=== PATIENT | male | born 1960 | race Caucasian/White ===

== ENCOUNTER 2019-07-16 01:11 | Observation (INO) ==
[2019-07-16] MEDS ORDERED: Ipratropium/Albuterol Neb 3 ML IH ONE (01:23)
[2019-07-16] MEDS ORDERED: methylPREDNISolone 125 MG/2 ML VIAL IVP ONE (01:23)
[2019-07-16 01:59] LABS: Basophils % 0.7 %; Eosinophils # 0.3 K/mcL (0.0-0.6); Eosinophils % 5.8 %; Hematocrit 41.4 % (37.5-50.1); Hemoglobin 14.6 g/dL (12.9-16.9); Immature Granulocytes % 0.5 % (0-4); Lymphocytes % 35.1 %; Mean Corpuscular HGB Conc 35.3 g/dL (31.6-35.5); Mean Corpuscular Hemoglobin 29.7 pg (28.0-33.3); Mean Corpuscular Volume 84.1 fL (83.0-100.0); Mean Platelet Volume 9.2 fL (9.4-12.4); Monocytes # 0.6 K/mcL (0.0-1.3); Monocytes % 10.8 %; Neutrophils # 2.7 K/mcL (1.6-8.9); Platelet Count 216 K/mcL (140-400); Red Blood Count 4.92 M/mcL (4.19-5.50); Red Cell Distribution Width 13.9 % (11.5-14.5); Segmented Neutrophils % 47.1 %; White Blood Count 5.7 K/mcL (4.3-11.1)
[2019-07-16 02:18] LABS: BUN/Creatinine Ratio 14 (6-26); Blood Urea Nitrogen 15 mg/dL (8-23); Calcium 9.2 mg/dL (8.6-10.3); Carbon Dioxide 24 mEq/L (23-29); Chloride 101 mEq/L (98-107); Glucose 106 mg/dL (70-105); Osmolality,Calculated 283 (280-300); Potassium 4.2 mEq/L (3.5-5.1); Sodium 136 mEq/L (136-145); eGFR For African Americans > 60 (> 60); eGFR For Non-African Americans > 60 (> 60)
[2019-07-16 02:19] LABS: Troponin I < 0.03 ng/mL (< 0.04)
[2019-07-16] MEDS ORDERED: Albuterol 2.5 MG/3 ML NEBULIZER IH ONE (02:55)
[2019-07-16] MEDS ORDERED: Azithromycin 500 MG in 0.9 % Sodium Chloride 250 ML IVPB ONE (03:00)
[2019-07-16 04:23] LABS: ABG Base Excess 2 mEq/L (-2 to 3); ABG HCO3 25 mEq/L (21-27); ABG Oxygen Saturation 93 % (95-98); ABG PCO2 33 mmHg (35-45); ABG PH 7.48 pH Units (7.32-7.45); ABG PO2 62 mmHg (85-104); ABG TCO2 26 mEq/L (20-26)
[2019-07-16] MEDS ORDERED: Acetaminophen 325 MG TABLET PO PRN (05:22)
[2019-07-16] MEDS ORDERED: *HR* Promethazine 25 MG/ML VIAL IVP PRN (05:22)
[2019-07-16] MEDS ORDERED: Mag Hydrox/Al Hydrox/Simeth 30 ML UDC PO PRN (05:22)
[2019-07-16] MEDS ORDERED: Naloxone 0.4 MG/ML INJ IVP PRN (05:22)
[2019-07-16] MEDS ORDERED: Nicotine 14 MG PATCH.TD24 TD PRN (05:25)
[2019-07-16] MEDS ORDERED: Benzonatate 100 MG CAPSULE PO PRN (05:26)
[2019-07-16] MEDS: Ipratropium/Albuterol Neb 3 ML IH SCH ×4 (07:30→19:51)
[2019-07-16] MEDS: MethylPREDNISolone 40 MG/ML VIAL IVP SCH ×2 (08:34→17:54)
[2019-07-16] MEDS: *HR* Heparin 5,000 UNIT/ML VIAL SQ SCH ×2 (08:34→17:54)
[2019-07-16] MEDS: FLUoxetine 20 MG CAPSULE PO SCH (08:34)
[2019-07-16] MEDS ORDERED: Divalproex (24 HR) 500 MG TABLET PO SCH (09:00)
[2019-07-16] MEDS ORDERED: Doxycycline 100 MG CAPSULE PO SCH (09:00)
[2019-07-17] MEDS: traZODone 50 MG TABLET PO SCH ×2 (00:31→21:27)
[2019-07-17] MEDS: Ipratropium/Albuterol Neb 3 ML IH SCH ×7 (03:23→23:47)
[2019-07-17 05:14] LABS: Basophils % 0.1 %; Hematocrit 39.9 % (37.5-50.1); Hemoglobin 13.7 g/dL (12.9-16.9); Immature Granulocytes % 0.5 % (0-4); Lymphocytes # 0.7 K/mcL (0.6-4.6); Lymphocytes % 5.7 %; Mean Corpuscular HGB Conc 34.3 g/dL (31.6-35.5); Mean Corpuscular Hemoglobin 29.5 pg (28.0-33.3); Mean Platelet Volume 9.7 fL (9.4-12.4); Monocytes # 0.9 K/mcL (0.0-1.3); Monocytes % 7.3 %; Neutrophils # 10.5 K/mcL (1.6-8.9); Platelet Count 219 K/mcL (140-400); Red Blood Count 4.64 M/mcL (4.19-5.50); Red Cell Distribution Width 13.8 % (11.5-14.5); Segmented Neutrophils % 86.4 %
[2019-07-17 05:15] LABS: White Blood Count 12.2 K/mcL (4.3-11.1)
[2019-07-17 05:35] LABS: BUN/Creatinine Ratio 23 (6-26); Blood Urea Nitrogen 22 mg/dL (8-23); Calcium 9.1 mg/dL (8.6-10.3); Carbon Dioxide 22 mEq/L (23-29); Chloride 101 mEq/L (98-107); Glucose 131 mg/dL (70-105); Magnesium 2.3 mg/dL (1.6-2.6); Osmolality,Calculated 279 (280-300); Potassium 4.9 mEq/L (3.5-5.1); Sodium 132 mEq/L (136-145); eGFR For African Americans > 60 (> 60); eGFR For Non-African Americans > 60 (> 60)
[2019-07-17] MEDS: MethylPREDNISolone 40 MG/ML VIAL IVP SCH ×3 (06:08→17:22)
[2019-07-17] MEDS: *HR* Heparin 5,000 UNIT/ML VIAL SQ SCH ×2 (06:14→17:22)
[2019-07-17] MEDS: Azithromycin 500 MG in 0.9 % Sodium Chloride 250 ML IVPB SCH (06:15)
[2019-07-17] MEDS: FLUoxetine 20 MG CAPSULE PO SCH (08:25)
[2019-07-17] MEDS ORDERED: Divalproex (24 HR) 500 MG TABLET PO SCH (21:00)
[2019-07-18] MEDS: MethylPREDNISolone 40 MG/ML VIAL IVP SCH ×2 (00:50→09:31)
[2019-07-18] MEDS: Ipratropium/Albuterol Neb 3 ML IH SCH ×3 (03:34→11:07)
[2019-07-18] MEDS: Azithromycin 500 MG in 0.9 % Sodium Chloride 250 ML IVPB SCH (06:14)
[2019-07-18] MEDS: *HR* Heparin 5,000 UNIT/ML VIAL SQ SCH (06:15)
[2019-07-18 06:41] VITALS: BP 119/73
[2019-07-18] MEDS ORDERED: FLUoxetine 20 MG CAPSULE PO SCH (09:00)
== END 2019-07-18 14:06 | disposition home or self-care (01) ==
LOC: 3ANU 01:11 → EMEROOARM 01:11 → SUATTDRO 04:25 → 3ANU 04:56
PROVIDERS: ADMIT Internal Medicine; ATTEND Pharmacist

== ENCOUNTER 2020-06-15 08:01 | Inpatient (IN) ==
[2020-06-15] MEDS ORDERED: Albuterol 2.5 MG/3 ML NEBULIZER IH ONE (08:14)
[2020-06-15] MEDS ORDERED: methylPREDNISolone 125 MG/2 ML VIAL IVP ONE (08:16)
[2020-06-15 08:51] LABS: Basophils # 0.1 K/mcL (0.0-0.2); Basophils % 0.9 %; Eosinophils # 0.3 K/mcL (0.0-0.6); Eosinophils % 5.1 %; Hematocrit 43.2 % (37.5-50.1); Hemoglobin 14.4 g/dL (12.9-16.9); Immature Granulocytes % 0.4 % (0-4); Lymphocytes % 18.2 %; Mean Corpuscular HGB Conc 33.3 g/dL (31.6-35.5); Mean Corpuscular Hemoglobin 29.5 pg (28.0-33.3); Mean Corpuscular Volume 88.5 fL (83.0-100.0); Mean Platelet Volume 9.5 fL (9.4-12.4); Monocytes # 0.6 K/mcL (0.0-1.3); Monocytes % 9.7 %; Neutrophils # 3.7 K/mcL (1.6-8.9); Platelet Count 154 K/mcL (140-400); Red Blood Count 4.88 M/mcL (4.19-5.50); Red Cell Distribution Width 12.9 % (11.5-14.5); Segmented Neutrophils % 65.7 %; White Blood Count 5.7 K/mcL (4.3-11.1)
[2020-06-15 09:16] LABS: Prothrombin Time 12.1 Seconds (9.4-12.1)
[2020-06-15 09:18] LABS: Activated Partial Thrombo Time 27.3 Seconds (26.0-36.0)
[2020-06-15 09:26] LABS: Alanine Aminotransferase 23 Units/L (7-52); Albumin/Globulin Ratio 1.3 (1.1-2.2); Alkaline Phosphatase 56 Units/L (34-104); Aspartate Amino Transferase 23 Units/L (13-39); BUN/Creatinine Ratio 16 (6-26); Bilirubin,Total 0.6 mg/dL (0.3-1.0); Blood Urea Nitrogen 14 mg/dL (8-23); Calcium 8.6 mg/dL (8.6-10.3); Carbon Dioxide 24 mEq/L (23-29); Chloride 100 mEq/L (98-107); Glucose 120 mg/dL (70-105); Osmolality,Calculated 280 (280-300); Potassium 3.9 mEq/L (3.5-5.1); Sodium 134 mEq/L (136-145); Troponin I 0.13 ng/mL (< 0.04); eGFR For African Americans > 60 (> 60); eGFR For Non-African Americans > 60 (> 60)
[2020-06-15] MEDS ORDERED: Nitroglycerin 0.4 MG TAB.SUBL SL PRN (09:33)
[2020-06-15] MEDS: Aspirin 81 MG TAB.CHEW PO SCH (09:50)
[2020-06-15] MEDS ORDERED: 0.9 % Sodium Chloride 1,000 ML ONE (09:52)
[2020-06-15] MEDS ORDERED: 0.9 % Sodium Chloride 1,000 ML IV ONE (09:53)
[2020-06-15] MEDS ORDERED: Nicotine 2 MG GUM BC PRN (11:25)
[2020-06-15] MEDS ORDERED: Ipratropium/Albuterol Neb 3 ML IH PRN (11:25)
[2020-06-15] MEDS ORDERED: Mag Hydrox/Al Hydrox/Simeth 30 ML UDC PO PRN (11:28)
[2020-06-15] MEDS ORDERED: Ondansetron 4 MG/2 ML VIAL IVP PRN (11:28)
[2020-06-15] MEDS ORDERED: Acetaminophen 325 MG TABLET PO PRN (11:28)
[2020-06-15] MEDS ORDERED: MOM Conc 10 ML UD.LIQ PO PRN (11:28)
[2020-06-15] MEDS ORDERED: *HR* HYDROcodone/Acet 5/325 mg TABLET PO PRN (11:28)
[2020-06-15] MEDS ORDERED: Naloxone 0.4 MG/ML INJ IVP PRN (11:28)
[2020-06-15] MEDS ORDERED: *HR* Heparin 5,000 UNIT/ML VIAL IVP PRN ×2 (11:32)
[2020-06-15] MEDS ORDERED: *HR* Heparin 5,000 UNIT/ML VIAL IVP ONE (11:32)
[2020-06-15] MEDS ORDERED: Heparin 25,000UNIT/250ML 1/2NS 25,000 UNIT/250 ML IV.SOLN IVC SCH (11:45)
[2020-06-15] MEDS: Ipratropium/Albuterol Neb 3 ML IH SCH ×4 (12:13→23:30)
[2020-06-15 12:25] LABS: Hematocrit 43.6 % (37.5-50.1); Hemoglobin 14.3 g/dL (12.9-16.9); Mean Corpuscular HGB Conc 32.8 g/dL (31.6-35.5); Mean Corpuscular Hemoglobin 29.1 pg (28.0-33.3); Mean Corpuscular Volume 88.6 fL (83.0-100.0); Mean Platelet Volume 9.4 fL (9.4-12.4); Platelet Count 164 K/mcL (140-400); Red Blood Count 4.92 M/mcL (4.19-5.50); Red Cell Distribution Width 12.8 % (11.5-14.5)
[2020-06-15 12:30] LABS: Heparin anti-factor XA UFH < 0.04 IU/mL (0.30-0.70)
[2020-06-15] MEDS: Azithromycin 500 MG in 0.9 % Sodium Chloride 250 ML IVPB SCH (12:52)
[2020-06-15] MEDS ORDERED: Perflutren Lipid Microsphere 1.3 ML in 0.9 % Sodium Chloride 8.7 ML IVP PRN (14:28)
[2020-06-15] MEDS ORDERED: ISOVUE-370 200 ML INFUS..BTL ONE (14:54)
[2020-06-15] MEDS ORDERED: 0.9 % Sodium Chloride 2,000 ML ONE (14:54)
[2020-06-15] MEDS ORDERED: Heparin 1,000 UNITS/500 mL 500 ML ONE (14:54)
[2020-06-15] MEDS ORDERED: Nitroglycerin 1,000 MCG/10 ML VIAL IV ONE (14:54)
[2020-06-15] MEDS ORDERED: *HR* Heparin 10,000 UNIT/10 ML VIAL ONE (14:54)
[2020-06-15] MEDS: MethylPREDNISolone 40 MG/ML VIAL IVP SCH ×2 (15:04→23:40)
[2020-06-15] MEDS ORDERED: *HR* FentaNYL (PF) 100 MCG/2 ML VIAL ONE (15:09)
[2020-06-15] MEDS ORDERED: *HR* Midazolam HCl 2 MG/2 ML VIAL ONE (15:09)
[2020-06-15] MEDS ORDERED: *HR* Atropine Sulfate 1 MG/10 ML SYRINGE ONE (15:45)
[2020-06-15] MEDS: Divalproex (24 HR) 500 MG TABLET PO SCH (20:44)
[2020-06-15] MEDS ORDERED: traZODone 50 MG TABLET PO PRN (21:00)
[2020-06-15] MEDS: Budesonide/Formoterol 160/4.5 1 PUFF INH IH SCH (21:36)
[2020-06-16] MEDS: Ipratropium/Albuterol Neb 3 ML IH SCH ×6 (03:43→23:33)
[2020-06-16] MEDS: Budesonide/Formoterol 160/4.5 1 PUFF INH IH SCH ×2 (07:20→20:02)
[2020-06-16 07:30] LABS: Basophils % 0.1 %; Hematocrit 41.3 % (37.5-50.1); Hemoglobin 13.8 g/dL (12.9-16.9); Immature Granulocytes % 0.5 % (0-4); Lymphocytes # 0.6 K/mcL (0.6-4.6); Lymphocytes % 5.5 %; Mean Corpuscular HGB Conc 33.4 g/dL (31.6-35.5); Mean Corpuscular Hemoglobin 29.6 pg (28.0-33.3); Mean Corpuscular Volume 88.4 fL (83.0-100.0); Mean Platelet Volume 9.2 fL (9.4-12.4); Monocytes # 0.5 K/mcL (0.0-1.3); Monocytes % 4.6 %; Neutrophils # 10.1 K/mcL (1.6-8.9); Platelet Count 181 K/mcL (140-400); Red Blood Count 4.67 M/mcL (4.19-5.50); Segmented Neutrophils % 89.3 %
[2020-06-16 07:38] LABS: White Blood Count 11.3 K/mcL (4.3-11.1)
[2020-06-16 07:49] LABS: BUN/Creatinine Ratio 23 (6-26); Blood Urea Nitrogen 18 mg/dL (8-23); Calcium 8.7 mg/dL (8.6-10.3); Carbon Dioxide 24 mEq/L (23-29); Chloride 101 mEq/L (98-107); Chol/HDL Ratio 3.8 (0-4.9); Cholesterol 175 mg/dL (< 200); Glucose 130 mg/dL (70-105); HDL Cholesterol 46 mg/dL (40-59); LDL Cholesterol,Calculated 113 mg/dL (< 100); Magnesium 2.1 mg/dL (1.6-2.6); Osmolality,Calculated 282 (280-300); Phosphorous 3.8 mg/dL (2.7-4.5); Potassium 4.2 mEq/L (3.5-5.1); Sodium 134 mEq/L (136-145); Triglycerides 78 mg/dL (< 150); eGFR For African Americans > 60 (> 60); eGFR For Non-African Americans > 60 (> 60)
[2020-06-16] MEDS: MethylPREDNISolone 40 MG/ML VIAL IVP SCH ×2 (08:21→16:41)
[2020-06-16] MEDS: Aspirin 81 MG TAB.CHEW PO SCH (08:22)
[2020-06-16] MEDS: FLUoxetine 20 MG CAPSULE PO SCH (08:23)
[2020-06-16] MEDS: Nicotine 21 MG PATCH.TD24 TD SCH (08:25)
[2020-06-16] MEDS: Azithromycin 500 MG in 0.9 % Sodium Chloride 250 ML IVPB SCH (13:13)
[2020-06-16] MEDS ORDERED: *HR* Atropine Sulfate 1 MG/10 ML SYRINGE ONE (16:13)
[2020-06-16] MEDS: Divalproex (24 HR) 500 MG TABLET PO SCH (19:52)
[2020-06-17] MEDS: MethylPREDNISolone 40 MG/ML VIAL IVP SCH ×2 (00:26→07:59)
[2020-06-17] MEDS: Ipratropium/Albuterol Neb 3 ML IH SCH ×3 (03:18→11:29)
[2020-06-17 05:50] LABS: Basophils % 0.1 %; Hematocrit 38.5 % (37.5-50.1); Hemoglobin 12.9 g/dL (12.9-16.9); Immature Granulocytes % 0.4 % (0-4); Lymphocytes # 0.8 K/mcL (0.6-4.6); Lymphocytes % 7.5 %; Mean Corpuscular HGB Conc 33.5 g/dL (31.6-35.5); Mean Corpuscular Hemoglobin 30.3 pg (28.0-33.3); Mean Corpuscular Volume 90.4 fL (83.0-100.0); Mean Platelet Volume 9.8 fL (9.4-12.4); Monocytes # 0.8 K/mcL (0.0-1.3); Monocytes % 7.4 %; Neutrophils # 8.8 K/mcL (1.6-8.9); Platelet Count 171 K/mcL (140-400); Red Blood Count 4.26 M/mcL (4.19-5.50); Red Cell Distribution Width 13.1 % (11.5-14.5); Segmented Neutrophils % 84.6 %; White Blood Count 10.3 K/mcL (4.3-11.1)
[2020-06-17 06:07] LABS: BUN/Creatinine Ratio 29 (6-26); Blood Urea Nitrogen 22 mg/dL (8-23); Calcium 8.6 mg/dL (8.6-10.3); Carbon Dioxide 23 mEq/L (23-29); Chloride 99 mEq/L (98-107); Glucose 102 mg/dL (70-105); Osmolality,Calculated 274 (280-300); Potassium 4.7 mEq/L (3.5-5.1); Sodium 130 mEq/L (136-145); eGFR For African Americans > 60 (> 60); eGFR For Non-African Americans > 60 (> 60)
[2020-06-17] MEDS: Budesonide/Formoterol 160/4.5 1 PUFF INH IH SCH (07:27)
[2020-06-17] MEDS: Aspirin 81 MG TAB.CHEW PO SCH (07:59)
[2020-06-17] MEDS: FLUoxetine 20 MG CAPSULE PO SCH (08:00)
[2020-06-17] MEDS: Nicotine 21 MG PATCH.TD24 TD SCH (08:00)
[2020-06-17] MEDS ORDERED: *HR* Heparin 5,000 UNIT/ML VIAL SQ SCH (09:00)
[2020-06-17] MEDS ORDERED: FLU Vac QV 20-21 (6Month+)/PF 0.5 ML SYRINGE IM ONE (09:49)
[2020-06-17 13:00] VITALS: BP 139/93
== END 2020-06-17 15:03 | disposition home or self-care (01) | DRG 190 ==
LOC: 3BNU 08:01 → EMEROOARM 08:01 → SUATTDRO 10:39 → 3BNU 11:46 → ICNU 16:05
PROVIDERS: ADMIT General Practice; ATTEND Internal Medicine

== ENCOUNTER 2020-08-04 23:21 | Inpatient (IN) ==
[2020-08-04] MEDS ORDERED: *HR* Atropine Sulfate 1 MG/10 ML SYRINGE ONE (23:32)
[2020-08-04] MEDS ORDERED: *HR* FentaNYL (PF) 100 MCG/2 ML VIAL IVP STA (23:36)
[2020-08-04] MEDS ORDERED: 0.9 % Sodium Chloride 1,000 ML IVC ONE (23:37)
[2020-08-04 23:51] LABS: Basophils % 0.1 %; Hematocrit 41.1 % (37.5-50.1); Hemoglobin 13.4 g/dL (12.9-16.9); Immature Granulocytes % 0.5 % (0-4); Lymphocytes # 1.2 K/mcL (0.6-4.6); Mean Corpuscular HGB Conc 32.6 g/dL (31.6-35.5); Mean Corpuscular Hemoglobin 29.1 pg (28.0-33.3); Mean Corpuscular Volume 89.3 fL (83.0-100.0); Mean Platelet Volume 9.5 fL (9.4-12.4); Monocytes # 0.9 K/mcL (0.0-1.3); Monocytes % 10.7 %; Neutrophils # 5.9 K/mcL (1.6-8.9); Platelet Count 170 K/mcL (140-400); Red Cell Distribution Width 13.3 % (11.5-14.5); Segmented Neutrophils % 73.7 %; White Blood Count 7.9 K/mcL (4.3-11.1)
[2020-08-04] MEDS ORDERED: *HR* Atropine Sulfate 1 MG/10 ML SYRINGE IVP ONE (23:51)
[2020-08-04] MEDS ORDERED: Heparin 1,000 UNITS/500 mL 500 ML ONE (23:54)
[2020-08-04] MEDS ORDERED: 0.9 % Sodium Chloride 1,000 ML ONE (23:54)
[2020-08-05 00:13] LABS: BUN/Creatinine Ratio 17 (6-26); Blood Urea Nitrogen 26 mg/dL (8-23); Carbon Dioxide 24 mEq/L (23-29); Chloride 103 mEq/L (98-107); Glucose 125 mg/dL (70-105); Magnesium 1.9 mg/dL (1.6-2.6); Osmolality,Calculated 286 (280-300); Potassium 4.6 mEq/L (3.5-5.1); Sodium 135 mEq/L (136-145); eGFR For African Americans 56 (> 60); eGFR For Non-African Americans 46 (> 60)
[2020-08-05 00:14] LABS: Troponin I < 0.03 ng/mL (< 0.04)
[2020-08-05 01:07] LABS: INR 1.1; Prothrombin Time 13.1 Seconds (9.4-12.1)
[2020-08-05 01:10] LABS: Activated Partial Thrombo Time 30.7 Seconds (26.0-36.0)
[2020-08-05] MEDS ORDERED: Naloxone 0.4 MG/ML INJ IVP PRN (01:14)
[2020-08-05] MEDS ORDERED: *HR* Promethazine 25 MG/ML VIAL IM PRN (01:14)
[2020-08-05] MEDS ORDERED: Acetaminophen 325 MG TABLET PO PRN (01:14)
[2020-08-05] MEDS: Ringers Solution, Lactated 1,000 ML IVC SCH ×2 (02:52→17:26)
[2020-08-05 04:09] LABS: Basophils % 0.2 %; Eosinophils % 0.2 %; Hematocrit 37.3 % (37.5-50.1); Hemoglobin 12.1 g/dL (12.9-16.9); Immature Granulocytes % 0.6 % (0-4); Lymphocytes % 15.8 %; Mean Corpuscular HGB Conc 32.4 g/dL (31.6-35.5); Mean Corpuscular Hemoglobin 29.4 pg (28.0-33.3); Mean Corpuscular Volume 90.5 fL (83.0-100.0); Mean Platelet Volume 9.3 fL (9.4-12.4); Monocytes # 0.8 K/mcL (0.0-1.3); Monocytes % 11.8 %; Neutrophils # 4.7 K/mcL (1.6-8.9); Platelet Count 147 K/mcL (140-400); Red Blood Count 4.12 M/mcL (4.19-5.50); Red Cell Distribution Width 13.2 % (11.5-14.5); Segmented Neutrophils % 71.4 %; White Blood Count 6.5 K/mcL (4.3-11.1)
[2020-08-05 04:24] LABS: BUN/Creatinine Ratio 23 (6-26); Blood Urea Nitrogen 23 mg/dL (8-23); Calcium 8.3 mg/dL (8.6-10.3); Carbon Dioxide 25 mEq/L (23-29); Chloride 107 mEq/L (98-107); Glucose 84 mg/dL (70-105); Magnesium 1.8 mg/dL (1.6-2.6); Osmolality,Calculated 285 (280-300); Potassium 4.3 mEq/L (3.5-5.1); Sodium 136 mEq/L (136-145); eGFR For African Americans > 60 (> 60); eGFR For Non-African Americans > 60 (> 60)
[2020-08-05 04:28] LABS: Troponin I < 0.03 ng/mL (< 0.04)
[2020-08-05 04:41] LABS: Thyroid Stimulating Hormone 2.785 mcIU/mL (0.340-5.600)
[2020-08-05] MEDS: *HR* Heparin 5,000 UNIT/ML VIAL SQ SCH ×2 (06:38→17:26)
[2020-08-05] MEDS: *HR* HYDROcodone/Acet 5/325 mg TABLET PO PRN ×2 (06:44→19:40)
[2020-08-05] MEDS ORDERED: Ipratropium/Albuterol Neb 3 ML IH PRN (14:35)
[2020-08-05] MEDS: predniSONE 20 MG TABLET PO SCH (18:37)
[2020-08-05] MEDS: Tiotropium 10 INH DOSE IH SCH (22:24)
[2020-08-06] MEDS: *HR* HYDROcodone/Acet 5/325 mg TABLET PO PRN (02:20)
[2020-08-06 04:10] LABS: Basophils % 0.2 %; Hematocrit 38.1 % (37.5-50.1); Hemoglobin 12.7 g/dL (12.9-16.9); Immature Granulocytes % 0.4 % (0-4); Lymphocytes # 0.6 K/mcL (0.6-4.6); Lymphocytes % 12.8 %; Mean Corpuscular HGB Conc 33.3 g/dL (31.6-35.5); Mean Corpuscular Hemoglobin 28.9 pg (28.0-33.3); Mean Corpuscular Volume 86.8 fL (83.0-100.0); Mean Platelet Volume 9.2 fL (9.4-12.4); Monocytes # 0.3 K/mcL (0.0-1.3); Monocytes % 5.7 %; Neutrophils # 3.9 K/mcL (1.6-8.9); Platelet Count 147 K/mcL (140-400); Red Blood Count 4.39 M/mcL (4.19-5.50); Red Cell Distribution Width 12.9 % (11.5-14.5); Segmented Neutrophils % 80.9 %; White Blood Count 4.8 K/mcL (4.3-11.1)
[2020-08-06 04:14] LABS: BUN/Creatinine Ratio 24 (6-26); Blood Urea Nitrogen 16 mg/dL (8-23); Calcium 8.6 mg/dL (8.6-10.3); Carbon Dioxide 24 mEq/L (23-29); Chloride 101 mEq/L (98-107); Glucose 128 mg/dL (70-105); Magnesium 1.9 mg/dL (1.6-2.6); Osmolality,Calculated 281 (280-300); Phosphorous 4.3 mg/dL (2.7-4.5); Potassium 4.4 mEq/L (3.5-5.1); Sodium 134 mEq/L (136-145); eGFR For African Americans > 60 (> 60); eGFR For Non-African Americans > 60 (> 60)
[2020-08-06] MEDS: *HR* Heparin 5,000 UNIT/ML VIAL SQ SCH ×2 (05:19→17:13)
[2020-08-06] MEDS ORDERED: Ipratropium/Albuterol Neb 3 ML ONE (07:51)
[2020-08-06] MEDS: Ipratropium/Albuterol Neb 3 ML IH SCH (07:52)
[2020-08-06] MEDS: Ringers Solution, Lactated 1,000 ML IVC SCH ×2 (07:53→23:17)
[2020-08-06] MEDS: Tiotropium 10 INH DOSE IH SCH ×2 (07:53→20:20)
[2020-08-06] MEDS: FLUoxetine 20 MG CAPSULE PO SCH (08:59)
[2020-08-06] MEDS: predniSONE 20 MG TABLET PO SCH (08:59)
[2020-08-06] MEDS: Aspirin 81 MG TAB.CHEW PO SCH (08:59)
[2020-08-06] MEDS: Nicotine 14 MG PATCH.TD24 TD SCH (08:59)
[2020-08-06] MEDS ORDERED: 0.9 % Sodium Chloride 500 ML ONE (12:52)
[2020-08-06] MEDS ORDERED: *HR* FentaNYL (PF) 100 MCG/2 ML VIAL ONE (12:53)
[2020-08-06] MEDS ORDERED: *HR* Midazolam HCl 2 MG/2 ML VIAL ONE ×2 (12:53→13:04)
[2020-08-06] MEDS ORDERED: Acetaminophen 325 MG TABLET PO PRN (13:56)
[2020-08-06] MEDS: Benzonatate 100 MG CAPSULE PO PRN (17:17)
[2020-08-06] MEDS: traZODone 50 MG TABLET PO PRN (20:03)
[2020-08-07] MEDS: Benzonatate 100 MG CAPSULE PO PRN ×3 (01:08→21:42)
[2020-08-07] MEDS ORDERED: Ipratropium/Albuterol Neb 3 ML ONE (01:18)
[2020-08-07] MEDS ORDERED: Ipratropium/Albuterol Neb 3 ML IH PRN (01:20)
[2020-08-07] MEDS: *HR* Heparin 5,000 UNIT/ML VIAL SQ SCH ×2 (06:27→16:03)
[2020-08-07] MEDS: Ipratropium/Albuterol Neb 3 ML IH SCH (07:40)
[2020-08-07] MEDS: Tiotropium 10 INH DOSE IH SCH ×2 (07:41→20:10)
[2020-08-07] MEDS: predniSONE 20 MG TABLET PO SCH (08:22)
[2020-08-07] MEDS: Metoprolol XL (24 HR) Succ 25 MG TAB.ER.24H PO SCH (08:22)
[2020-08-07] MEDS: Nicotine 14 MG PATCH.TD24 TD SCH (08:23)
[2020-08-07] MEDS: Aspirin 81 MG TAB.CHEW PO SCH (08:23)
[2020-08-07] MEDS: FLUoxetine 20 MG CAPSULE PO SCH (08:23)
[2020-08-07] MEDS: *HR* HYDROcodone/Acet 5/325 mg TABLET PO PRN ×2 (10:37→21:42)
[2020-08-07] MEDS: Ringers Solution, Lactated 1,000 ML IVC SCH ×2 (12:33→13:50)
[2020-08-07] MEDS: traZODone 50 MG TABLET PO PRN (21:42)
[2020-08-08] MEDS: *HR* Heparin 5,000 UNIT/ML VIAL SQ SCH (04:56)
[2020-08-08] MEDS: Tiotropium 10 INH DOSE IH SCH (08:14)
[2020-08-08] MEDS: Ipratropium/Albuterol Neb 3 ML IH SCH (08:14)
[2020-08-08] MEDS: Aspirin 81 MG TAB.CHEW PO SCH (08:23)
[2020-08-08] MEDS: predniSONE 20 MG TABLET PO SCH (08:23)
[2020-08-08] MEDS: Nicotine 14 MG PATCH.TD24 TD SCH (08:23)
[2020-08-08] MEDS: FLUoxetine 20 MG CAPSULE PO SCH (08:23)
[2020-08-08] MEDS: Metoprolol XL (24 HR) Succ 25 MG TAB.ER.24H PO SCH (08:23)
[2020-08-08 11:23] VITALS: BP 128/79
== END 2020-08-08 16:59 | disposition home or self-care (01) | DRG 171 ==
LOC: EMEROOARM 23:21 → ICNU 23:21 → 2ANU 08-06 14:31
PROVIDERS: ADMIT Internal Medicine; ATTEND Internal Medicine

== ENCOUNTER 2020-08-28 06:48 | Observation (INO) ==
[2020-08-28] MEDS ORDERED: methylPREDNISolone 125 MG/2 ML VIAL IVP ONE (06:56)
[2020-08-28 07:31] LABS: Basophils % 0.7 %; Eosinophils # 0.3 K/mcL (0.0-0.6); Eosinophils % 5.4 %; Hematocrit 38.7 % (37.5-50.1); Hemoglobin 12.6 g/dL (12.9-16.9); Immature Granulocytes % 0.8 % (0-4); Immature Platelets 1.9 % (1.1-6.1); Lymphocytes # 1.3 K/mcL (0.6-4.6); Lymphocytes % 20.6 %; Mean Corpuscular HGB Conc 32.6 g/dL (31.6-35.5); Mean Corpuscular Hemoglobin 29.2 pg (28.0-33.3); Mean Corpuscular Volume 89.6 fL (83.0-100.0); Mean Platelet Volume 9.2 fL (9.4-12.4); Monocytes # 0.5 K/mcL (0.0-1.3); Monocytes % 8.7 %; Neutrophils # 3.9 K/mcL (1.6-8.9); Platelet Count 148 K/mcL (140-400); Red Blood Count 4.32 M/mcL (4.19-5.50); Red Cell Distribution Width 13.2 % (11.5-14.5); Segmented Neutrophils % 63.8 %; White Blood Count 6.1 K/mcL (4.3-11.1)
[2020-08-28] MEDS ORDERED: Isovue-370 500 ML BOTTLE IVP ONE (07:47)
[2020-08-28 07:59] LABS: BUN/Creatinine Ratio 17 (6-26); Blood Urea Nitrogen 15 mg/dL (8-23); Calcium 8.5 mg/dL (8.6-10.3); Carbon Dioxide 26 mEq/L (23-29); Chloride 105 mEq/L (98-107); Glucose 143 mg/dL (70-105); Osmolality,Calculated 289 (280-300); Potassium 4.1 mEq/L (3.5-5.1); Sodium 138 mEq/L (136-145); eGFR For African Americans > 60 (> 60); eGFR For Non-African Americans > 60 (> 60)
[2020-08-28 08:03] LABS: Troponin I 0.04 ng/mL (< 0.04)
[2020-08-28] MEDS ORDERED: Albuterol 2.5 MG/3 ML NEBULIZER IH ONE (08:11)
[2020-08-28 08:26] LABS: Adenovirus Not Detected (Not Detect); Coronavirus 229E Not Detected (Not Detect); Coronavirus HKU1 Not Detected (Not Detect); Coronavirus NL63 Not Detected (Not Detect); Coronavirus OC43 Not Detected (Not Detect); Human Metapneumovirus Not Detected (Not Detect); Human Rhinovirus/Enterovirus DETECTED (Not Detect); Influenza A Subtype 2009 H1 Not Detected (Not Detect); Influenza B Not Detected (Not Detect); Parainfluenza Virus 1 Not Detected (Not Detect); Parainfluenza Virus 2 Not Detected (Not Detect); Parainfluenza Virus 3 Not Detected (Not Detect); Parainfluenza Virus 4 Not Detected (Not Detect); Respiratory Syncytial Virus Not Detected (Not Detect); SARS-CoV-2 Not Detected (Not Detect)
[2020-08-28 08:27] LABS: Bordetella Pertussis Not Detected (Not Detect); Chlamydophila pneumoniae Not Detected (Not Detect); Mycoplasma pneumoniae Not Detected (Not Detect)
[2020-08-28] MEDS ORDERED: Naloxone 0.4 MG/ML INJ IVP PRN (09:27)
[2020-08-28] MEDS ORDERED: Melatonin 3 MG TABLET PO PRN (09:27)
[2020-08-28] MEDS ORDERED: Doxycycline 100 MG in 0.9 % Sodium Chloride Mini Bag 100 ML IVPB ONE (09:27)
[2020-08-28] MEDS ORDERED: Ondansetron 4 MG/2 ML VIAL IVP PRN (09:27)
[2020-08-28] MEDS ORDERED: Benzonatate 100 MG CAPSULE PO PRN (10:00)
[2020-08-28] MEDS: Tiotropium 10 INH DOSE IH SCH (11:29)
[2020-08-28] MEDS: Budesonide/Formoterol 160/4.5 1 PUFF INH IH SCH ×2 (11:30→22:30)
[2020-08-28] MEDS: Ipratropium/Albuterol Neb 3 ML IH SCH ×3 (11:41→22:31)
[2020-08-28] MEDS: Nicotine 14 MG PATCH.TD24 TD SCH (11:51)
[2020-08-28] MEDS ORDERED: traZODone 50 MG TABLET PO PRN (15:03)
[2020-08-28] MEDS: *HR* Heparin 5,000 UNIT/ML VIAL SQ SCH ×2 (15:21→20:14)
[2020-08-28] MEDS: Doxycycline 100 MG in 0.9 % Sodium Chloride Mini Bag 100 ML IVPB SCH (18:40)
[2020-08-28] MEDS: MethylPREDNISolone 40 MG/ML VIAL IVP SCH (20:14)
[2020-08-29 02:15] LABS: Basophils % 0.2 %; Hematocrit 36.6 % (37.5-50.1); Hemoglobin 12.2 g/dL (12.9-16.9); Immature Granulocytes % 0.6 % (0-4); Lymphocytes # 0.5 K/mcL (0.6-4.6); Lymphocytes % 7.8 %; Mean Corpuscular HGB Conc 33.3 g/dL (31.6-35.5); Mean Corpuscular Hemoglobin 29.5 pg (28.0-33.3); Mean Corpuscular Volume 88.4 fL (83.0-100.0); Mean Platelet Volume 9.5 fL (9.4-12.4); Monocytes # 0.3 K/mcL (0.0-1.3); Neutrophils # 5.4 K/mcL (1.6-8.9); Platelet Count 149 K/mcL (140-400); Red Blood Count 4.14 M/mcL (4.19-5.50); Segmented Neutrophils % 87.4 %; White Blood Count 6.2 K/mcL (4.3-11.1)
[2020-08-29 02:35] LABS: BUN/Creatinine Ratio 29 (6-26); Blood Urea Nitrogen 20 mg/dL (8-23); Calcium 8.7 mg/dL (8.6-10.3); Carbon Dioxide 23 mEq/L (23-29); Chloride 104 mEq/L (98-107); Glucose 137 mg/dL (70-105); Magnesium 1.9 mg/dL (1.6-2.6); Osmolality,Calculated 287 (280-300); Potassium 4.2 mEq/L (3.5-5.1); Sodium 136 mEq/L (136-145); eGFR For African Americans > 60 (> 60); eGFR For Non-African Americans > 60 (> 60)
[2020-08-29] MEDS: Ipratropium/Albuterol Neb 3 ML IH SCH ×2 (03:54→09:56)
[2020-08-29] MEDS: Doxycycline 100 MG in 0.9 % Sodium Chloride Mini Bag 100 ML IVPB SCH ×2 (05:12→16:15)
[2020-08-29] MEDS: MethylPREDNISolone 40 MG/ML VIAL IVP SCH ×2 (05:12→14:03)
[2020-08-29] MEDS: *HR* Heparin 5,000 UNIT/ML VIAL SQ SCH ×3 (05:13→20:40)
[2020-08-29] MEDS: Metoprolol XL (24 HR) Succ 25 MG TAB.ER.24H PO SCH (07:10)
[2020-08-29] MEDS: FLUoxetine 20 MG CAPSULE PO SCH (07:10)
[2020-08-29] MEDS: Nicotine 14 MG PATCH.TD24 TD SCH (07:10)
[2020-08-29] MEDS: Divalproex (24 HR) 500 MG TABLET PO SCH (07:10)
[2020-08-29] MEDS: Aspirin 81 MG TAB.CHEW PO SCH (07:10)
[2020-08-29] MEDS: Tiotropium 10 INH DOSE IH SCH (11:23)
[2020-08-29] MEDS: Budesonide/Formoterol 160/4.5 1 PUFF INH IH SCH ×2 (11:23→19:29)
[2020-08-30 02:35] LABS: Hematocrit 34.8 % (37.5-50.1); Hemoglobin 11.6 g/dL (12.9-16.9); Mean Corpuscular HGB Conc 33.3 g/dL (31.6-35.5); Mean Corpuscular Hemoglobin 30.1 pg (28.0-33.3); Mean Corpuscular Volume 90.2 fL (83.0-100.0); Mean Platelet Volume 10.3 fL (9.4-12.4); Platelet Count 153 K/mcL (140-400); Red Blood Count 3.86 M/mcL (4.19-5.50); Red Cell Distribution Width 13.2 % (11.5-14.5); White Blood Count 8.7 K/mcL (4.3-11.1)
[2020-08-30 02:51] LABS: BUN/Creatinine Ratio 30 (6-26); Blood Urea Nitrogen 21 mg/dL (8-23); Calcium 8.3 mg/dL (8.6-10.3); Carbon Dioxide 26 mEq/L (23-29); Chloride 101 mEq/L (98-107); Glucose 107 mg/dL (70-105); Magnesium 1.9 mg/dL (1.6-2.6); Osmolality,Calculated 279 (280-300); Potassium 4.5 mEq/L (3.5-5.1); Sodium 133 mEq/L (136-145); eGFR For African Americans > 60 (> 60); eGFR For Non-African Americans > 60 (> 60)
[2020-08-30] MEDS: *HR* Heparin 5,000 UNIT/ML VIAL SQ SCH ×3 (05:22→22:14)
[2020-08-30] MEDS: MethylPREDNISolone 40 MG/ML VIAL IVP SCH ×2 (05:22→17:05)
[2020-08-30] MEDS: Doxycycline 100 MG in 0.9 % Sodium Chloride Mini Bag 100 ML IVPB SCH ×2 (05:23→17:06)
[2020-08-30] MEDS: Divalproex (24 HR) 500 MG TABLET PO SCH (07:48)
[2020-08-30] MEDS: Aspirin 81 MG TAB.CHEW PO SCH (07:48)
[2020-08-30] MEDS: Metoprolol XL (24 HR) Succ 25 MG TAB.ER.24H PO SCH (07:48)
[2020-08-30] MEDS: Nicotine 14 MG PATCH.TD24 TD SCH (07:49)
[2020-08-30] MEDS: FLUoxetine 20 MG CAPSULE PO SCH (07:49)
[2020-08-30] MEDS: Tiotropium 10 INH DOSE IH SCH (09:46)
[2020-08-30] MEDS: Budesonide/Formoterol 160/4.5 1 PUFF INH IH SCH ×2 (09:46→19:53)
[2020-08-30] MEDS: Ipratropium/Albuterol Neb 3 ML IH PRN (19:54)
[2020-08-31 04:07] LABS: Hematocrit 33.2 % (37.5-50.1); Hemoglobin 11.2 g/dL (12.9-16.9); Mean Corpuscular HGB Conc 33.7 g/dL (31.6-35.5); Mean Corpuscular Hemoglobin 29.5 pg (28.0-33.3); Mean Corpuscular Volume 87.4 fL (83.0-100.0); Mean Platelet Volume 9.8 fL (9.4-12.4); Platelet Count 151 K/mcL (140-400); Red Cell Distribution Width 13.4 % (11.5-14.5); White Blood Count 6.4 K/mcL (4.3-11.1)
[2020-08-31 04:27] LABS: BUN/Creatinine Ratio 26 (6-26); Blood Urea Nitrogen 19 mg/dL (8-23); Calcium 8.4 mg/dL (8.6-10.3); Carbon Dioxide 28 mEq/L (23-29); Chloride 102 mEq/L (98-107); Glucose 111 mg/dL (70-105); Osmolality,Calculated 281 (280-300); Potassium 4.5 mEq/L (3.5-5.1); Sodium 134 mEq/L (136-145); eGFR For African Americans > 60 (> 60); eGFR For Non-African Americans > 60 (> 60)
[2020-08-31] MEDS: Doxycycline 100 MG in 0.9 % Sodium Chloride Mini Bag 100 ML IVPB SCH ×2 (05:39→17:32)
[2020-08-31] MEDS: MethylPREDNISolone 40 MG/ML VIAL IVP SCH (05:39)
[2020-08-31] MEDS: *HR* Heparin 5,000 UNIT/ML VIAL SQ SCH ×3 (05:39→20:28)
[2020-08-31] MEDS: Aspirin 81 MG TAB.CHEW PO SCH (07:28)
[2020-08-31] MEDS: predniSONE 20 MG TABLET PO SCH (07:28)
[2020-08-31] MEDS: Metoprolol XL (24 HR) Succ 25 MG TAB.ER.24H PO SCH (07:29)
[2020-08-31] MEDS: Divalproex (24 HR) 500 MG TABLET PO SCH (07:29)
[2020-08-31] MEDS: FLUoxetine 20 MG CAPSULE PO SCH (07:29)
[2020-08-31] MEDS: Nicotine 14 MG PATCH.TD24 TD SCH (07:29)
[2020-08-31] MEDS: Budesonide/Formoterol 160/4.5 1 PUFF INH IH SCH ×2 (07:55→22:56)
[2020-08-31] MEDS: Tiotropium 10 INH DOSE IH SCH (07:56)
[2020-08-31] MEDS: Ipratropium/Albuterol Neb 3 ML IH PRN (12:45)
[2020-09-01] MEDS: Ipratropium/Albuterol Neb 3 ML IH PRN ×2 (03:28→07:17)
[2020-09-01 04:25] LABS: Hematocrit 34.4 % (37.5-50.1); Hemoglobin 11.7 g/dL (12.9-16.9); Mean Corpuscular Hemoglobin 29.8 pg (28.0-33.3); Mean Corpuscular Volume 87.5 fL (83.0-100.0); Mean Platelet Volume 9.6 fL (9.4-12.4); Platelet Count 149 K/mcL (140-400); Red Blood Count 3.93 M/mcL (4.19-5.50); Red Cell Distribution Width 13.3 % (11.5-14.5); White Blood Count 7.3 K/mcL (4.3-11.1)
[2020-09-01 04:42] LABS: BUN/Creatinine Ratio 25 (6-26); Blood Urea Nitrogen 18 mg/dL (8-23); Calcium 8.4 mg/dL (8.6-10.3); Carbon Dioxide 27 mEq/L (23-29); Chloride 99 mEq/L (98-107); Glucose 89 mg/dL (70-105); Osmolality,Calculated 275 (280-300); Potassium 4.1 mEq/L (3.5-5.1); Sodium 132 mEq/L (136-145); eGFR For African Americans > 60 (> 60); eGFR For Non-African Americans > 60 (> 60)
[2020-09-01] MEDS: *HR* Heparin 5,000 UNIT/ML VIAL SQ SCH (05:20)
[2020-09-01] MEDS: Doxycycline 100 MG in 0.9 % Sodium Chloride Mini Bag 100 ML IVPB SCH (05:20)
[2020-09-01] MEDS: Budesonide/Formoterol 160/4.5 1 PUFF INH IH SCH (07:17)
[2020-09-01] MEDS: Tiotropium 10 INH DOSE IH SCH (07:19)
[2020-09-01] MEDS: Aspirin 81 MG TAB.CHEW PO SCH (08:04)
[2020-09-01] MEDS: Divalproex (24 HR) 500 MG TABLET PO SCH (08:04)
[2020-09-01] MEDS: FLUoxetine 20 MG CAPSULE PO SCH (08:04)
[2020-09-01] MEDS: Nicotine 14 MG PATCH.TD24 TD SCH (08:04)
[2020-09-01] MEDS: predniSONE 20 MG TABLET PO SCH (08:04)
[2020-09-01] MEDS: Metoprolol XL (24 HR) Succ 25 MG TAB.ER.24H PO SCH (08:04)
[2020-09-01 10:23] VITALS: BP 101/58
[2020-09-01] MEDS ORDERED: Doxycycline 100 MG CAPSULE PO SCH (17:00)
== END 2020-09-01 14:05 | disposition home or self-care (01) ==
LOC: EMEROOARM 06:48 → 2ANU 06:48 → SUATTDRO 09:46 → 2ANU 10:51
PROVIDERS: ADMIT Family Medicine; ATTEND Internal Medicine